=== PATIENT | female | born 1960 | race Caucasian/White ===

== ENCOUNTER 2019-10-10 11:50 | Emergency (ER) | payer MEDICARE ==
[~2019-10-10] VITALS: Ht 154.9 cm; Wt 85.7 kg
[2019-10-10 12:36] LABS: BASOPHILS % (AUTO) 0.4 % (0-1); EOSINOPHILS % (AUTO) 0.2 % (0-6); HEMATOCRIT 40.8 % (35.0-45.0); HEMOGLOBIN 13.8 g/dl (12.0-16.0); LYMPHOCYTES % (AUTO) 18.2 % (21-51); MEAN CORPUSCULAR HGB CONC 33.8 g/dL (33.0-36.5); MEAN CORPUSCULAR VOLUME 91.9 FL (78-98); MEAN PLATELET VOLUME 8.8 FL (7.4-10.4); MONOCYTES # (AUTO) 0.6 X10'3 (0-0.9); MONOCYTES % (AUTO) 5.3 % (2-12); NEUTROPHILS # (AUTO) 8.3 X10'3 (1.8-7.7); NEUTROPHILS % (AUTO) 75.9 % (42-75); PLATELET COUNT 230 X10'3 (140-440); RED BLOOD COUNT 4.44 X10'6 (4.20-5.60); RED CELL DISTRIBUTION WIDTH 12.8 % (11.5-14.5)
[2019-10-10 12:56] LABS: ALANINE AMINOTRANSFERASE 21 U/L (12-78); ALBUMIN 4.2 G/DL (3.4-5.0); ALBUMIN/GLOBULIN RATIO 1.4 (1.1-1.5); ALKALINE PHOSPHATASE 79 IU/L (46-116); ANION GAP 8 (8-16); ASPARTATE AMINO TRANSFERASE 17 U/L (10-37); BILIRUBIN,TOTAL 0.4 MG/DL (0.1-1.0); BLOOD UREA NITROGEN 10 MG/DL (7-18); BUN/CREATININE RATIO 12.3 (6.6-38.0); CHLORIDE 107 MMOL/L (99-107); CREATININE 0.81 MG/DL (0.40-0.90); GLUCOSE 97 MG/DL (70-104); LIPASE 107 U/L (73-393); SODIUM 141 MMOL/L (135-145); TOTAL CARBON DIOXIDE 26.5 MMOL/L (24-32); TOTAL PROTEIN 7.2 G/DL (6.4-8.2); eGFR 72 ML/MIN
[2019-10-10] MEDS ORDERED: normal saline 1000ML IV soln IVB ONE (13:05)
[2019-10-10] MEDS ORDERED: ondansetron/PF 4mg/2ml inj IV ONE (13:05)
[2019-10-10 13:54] LABS: CLARITY,URINE CLEAR (Clear); COLOR,URINE YELLOW (Yellow); GLUCOSE, URINE NEGATIVE (Neg); KETONES,URINE NEGATIVE (Neg); LEUKOCYTE ESTERASE ,URINE NEGATIVE (Neg); NITRITES, URINE NEGATIVE (Neg); OCCULT BLOOD,URINE SMALL (Neg); PROTEIN,URINE NEGATIVE (Neg); UA COLLECTION TYPE CLN CATCH MIDSTREAM; UROBILINOGEN,URINE 0.2 E.U/dL (0.2-1.0)
[2019-10-10] MEDS: morphine 4 MG/ML inj SYRINge IV PRN ×2 (13:56→14:32)
[2019-10-10 13:59] LABS: MUCUS STRANDS MODERATE /LPF (Neg); SQUAMOUS EPITHELIAL CELL,UR MODERATE /LPF (FEW)
[2019-10-10 14:00] LABS: BACTERIA,URINE FEW /HPF (Neg); WBC,URINE 0-4 /HPF (0-4)
[2019-10-10] MEDS ORDERED: CIPR-230 PO (14:33)
[2019-10-10] MEDS ORDERED: METR-159 PO (14:33)
[2019-10-10] MEDS ORDERED: DICY10CA88 PO (14:39)
[2019-10-10] MEDS ORDERED: dicyclomine 10 MG capsule PO ONE (14:40)
[2019-10-10 14:50] VITALS: BP 160/88
== END 2019-10-10 14:54 | disposition home or self-care (01) ==
LOC: ER 11:51
DX: K52.9 Noninfective gastroenteritis and colitis, unspecified (principal); R42 Dizziness and giddiness; K92.1 Melena; R10.33 Periumbilical pain; G89.29 Other chronic pain; Z98.890 Other specified postprocedural states; Z98.51 Tubal ligation status
CPT/HCPCS: 36415; 74176; 80053; 81001; 83690; 85025; 96361; 96374; 96375; 96376; 99284; J2270; J2405; J7030

== ENCOUNTER 2022-03-01 09:51 | Outpatient (CLI) | payer MEDICARE ==
[~2022-03-01 09:51] MED LIST: DICY10CA88 PO
== END 2022-03-01 23:59 | disposition home or self-care (01) ==
LOC: VAS 09:51
PROVIDERS: ATTEND Family Medicine
DX: I82.441 Acute embolism and thrombosis of right tibial vein (principal)
CPT/HCPCS: 93971

== ENCOUNTER 2022-06-30 13:31 | Outpatient (CLI) | payer MEDICARE | END 2022-06-30 23:59 | disposition home or self-care (01) | LOC: VAS 13:31 | PROVIDERS: ATTEND Family Medicine | DX: I82.441 Acute embolism and thrombosis of right tibial vein (principal) | CPT/HCPCS: 93971 ==

== ENCOUNTER 2022-08-15 09:36 | Emergency (ER) | payer MEDICARE, OTHER ==
[~2022-08-15] VITALS: Ht 167.6 cm; Wt 87.0 kg
[2022-08-15 10:06] LABS: BASOPHILS % (AUTO) 0.4 % (0-1); EOSINOPHILS # (AUTO) 0.1 X10'3 (0-0.9); EOSINOPHILS % (AUTO) 1.1 % (0-6); HEMATOCRIT 40.2 % (35.0-45.0); HEMOGLOBIN 13.4 g/dl (12.0-16.0); LYMPHOCYTES # (AUTO) 1.4 X10'3 (1.1-4.8); LYMPHOCYTES % (AUTO) 14.7 % (21-51); MEAN CORPUSCULAR HEMOGLOBIN 30.1 PG (27.0-31.0); MEAN CORPUSCULAR HGB CONC 33.2 g/dL (33.0-36.5); MEAN CORPUSCULAR VOLUME 90.5 FL (78-98); MEAN PLATELET VOLUME 8.5 FL (7.4-10.4); MONOCYTES # (AUTO) 0.8 X10'3 (0-0.9); MONOCYTES % (AUTO) 7.9 % (2-12); NEUTROPHILS # (AUTO) 7.4 X10'3 (1.8-7.7); NEUTROPHILS % (AUTO) 75.9 % (42-75); PLATELET COUNT 219 X10'3 (140-440); RED BLOOD COUNT 4.44 X10'6 (4.20-5.60); RED CELL DISTRIBUTION WIDTH 13.3 % (11.5-14.5); WHITE BLOOD COUNT 9.8 X10'3 (4.5-11.0)
[2022-08-15 10:20] LABS: ALANINE AMINOTRANSFERASE 29 U/L (12-78); ALBUMIN 3.8 G/DL (3.4-5.0); ALBUMIN/GLOBULIN RATIO 1.1 (1.1-1.5); ALKALINE PHOSPHATASE 72 IU/L (46-116); ANION GAP 7 (8-16); ASPARTATE AMINO TRANSFERASE 20 U/L (10-37); BILIRUBIN,TOTAL 0.3 MG/DL (0.1-1.0); BLOOD UREA NITROGEN 19 MG/DL (7-18); CALCIUM 8.7 MG/DL (8.5-10.1); CHLORIDE 105 MMOL/L (99-107); CREATININE 0.95 MG/DL (0.40-0.90); GLUCOSE 123 MG/DL (70-104); POTASSIUM 4.1 MMOL/L (3.5-5.1); SODIUM 139 MMOL/L (135-145); TOTAL CARBON DIOXIDE 27.5 MMOL/L (24-32); TOTAL PROTEIN 7.2 G/DL (6.4-8.2); eGFR 59 ML/MIN
[2022-08-15] MEDS ORDERED: normal saline 1000ML IV soln IVB ONE (10:35)
[2022-08-15] MEDS ORDERED: ketorolac trometh. 30mg/ml inj. IV ONE (10:35)
[2022-08-15] MEDS ORDERED: morphine 4 MG/ML inj SYRINge IV ONE ×2 (10:35→11:10)
[2022-08-15] MEDS ORDERED: aspirin 81mg tab.chew PO ONE (10:35)
[2022-08-15] MEDS ORDERED: LORazepam 2 mg/ml vial IV ONE (11:05)
[2022-08-15 11:08] LABS: LIPASE 116 U/L (73-393)
[2022-08-15] MEDS ORDERED: iohexol 350MG/ML 100ml bottle IV ONE (11:10)
[2022-08-15 11:12] LABS: D-DIMER 0.86 MG/L FEU (0-0.50)
[2022-08-15] MEDS ORDERED: ALBU6.7H14 INH (14:21)
[2022-08-15] MEDS ORDERED: AMOX-117 PO (14:21)
[2022-08-15] MEDS ORDERED: HYDR-3965 PO (14:21)
[2022-08-15 14:38] VITALS: BP 138/74
[2022-08-15] MEDS ORDERED: ondansetron 4mg rapidly disintigrating tab PO ONE (14:45)
== END 2022-08-15 14:54 | disposition home or self-care (01) ==
LOC: ER 09:37
DX: J90 Pleural effusion, not elsewhere classified (principal); R07.81 Pleurodynia; G89.29 Other chronic pain; M54.50 Low back pain, unspecified; Z98.51 Tubal ligation status
CPT/HCPCS: 36415; 71045; 71275; 74177; 80053; 83690; 83880; 84484; 85025; 85379; 93005; 96361; 96374; 96375; 99285; J1885; J2060; J2270; J3490; J7030; Q9967

== ENCOUNTER 2022-09-06 05:30 | Observation (INO) | payer OTHER ==
[2022-08-29 10:58] LABS: BASOPHILS # (AUTO) 0.1 X10'3 (0-0.2); BASOPHILS % (AUTO) 1.3 % (0-1); EOSINOPHILS # (AUTO) 0.4 X10'3 (0-0.9); EOSINOPHILS % (AUTO) 5.3 % (0-6); LYMPHOCYTES # (AUTO) 2.2 X10'3 (1.1-4.8); LYMPHOCYTES % (AUTO) 27.2 % (21-51); MEAN CORPUSCULAR HGB CONC 34.4 g/dL (33.0-36.5); MEAN PLATELET VOLUME 8.6 FL (7.4-10.4); MONOCYTES # (AUTO) 0.5 X10'3 (0-0.9); MONOCYTES % (AUTO) 6.2 % (2-12); NEUTROPHILS # (AUTO) 4.7 X10'3 (1.8-7.7); PRE OP HEMATOCRIT 38.8 % (35.0-45.0); PRE OP HEMOGLOBIN 13.4 g/dL (12.0-16.0); PRE OP PLATELET COUNT 274 X10'3 (140-440); RED BLOOD COUNT 4.32 X10'6 (4.20-5.60)
[2022-08-29 10:59] LABS: ALBUMIN 3.9 G/DL (3.4-5.0); ALBUMIN/GLOBULIN RATIO 1.1 (1.1-1.5); ALKALINE PHOSPHATASE 71 IU/L (46-116); BLOOD UREA NITROGEN 15 MG/DL (7-18); BUN/CREATININE RATIO 16.7 (6.6-38.0); CALCIUM 9.4 MG/DL (8.5-10.1); CHLORIDE 104 MMOL/L (99-107); PRE OP ALT 30 U/L (30-65); PRE OP ANION GAP 8 (8-16); PRE OP AST 25 U/L (10-37); PRE OP BILIRUB, TOTAL 0.3 MG/DL (0.0-1.0); PRE OP GLUCOSE 98 MG/DL (70-104); PRE OP SODIUM 141 MMOL/L (135-145); TOTAL CARBON DIOXIDE 28.8 MMOL/L (24-32); TOTAL PROTEIN 7.3 G/DL (6.4-8.2); eGFR 63 ML/MIN
[~2022-09-06] VITALS: Ht 154.9 cm; Wt 85.1 kg
[2022-09-06] VITALS (48 sets, daily range): BP systolic 123–179; BP diastolic 70–105
[~2022-09-06 05:30] MED LIST changes: +CALC1TAB PO; -DICY10CA88 PO; +MULT-1085 PO; +OMEP20CA16 PO; +ceFAZolin inj. 2,000 MG in dextrose 5%-water 100 ML IV ONE; +famotidine 20mg tablet PO ONE; +ringers solution, lacted 1,000 ML IV SCH
[2022-09-06] MEDS ORDERED: BUPIVAcaine 0.5% inj/PF 30 ML ONE (06:01)
[2022-09-06] MEDS ORDERED: sevoflurane 250ml liquid IH ONE (07:10)
[2022-09-06] MEDS ORDERED: acetaminophen 1000 MG/100ml vial IV ONE (07:10)
[2022-09-06] MEDS ORDERED: fentaNYL/PF 50MCG/1 ML 2ML syringe ONE (07:13)
[2022-09-06] MEDS ORDERED: midazolam 1 mg/ML 2ml injection ONE (07:14)
[2022-09-06] MEDS ORDERED: ROPIVAcaine 0.5% (5mg/ml) 30ml vial ONE (07:14)
[2022-09-06] MEDS ORDERED: dexamethasone sod phosphate 4mg/ml inj. ONE (07:14)
[2022-09-06] MEDS ORDERED: propofol inj 20 ML IV ONE (07:14)
[2022-09-06] MEDS ORDERED: LIDOcaine 2% (20mg/ml) 5ml vial ONE (07:14)
[2022-09-06] MEDS ORDERED: ondansetron/PF 4mg/2ml inj ONE (07:17)
[2022-09-06] MEDS ORDERED: ePHEDrine 50MG/ML INJ. ONE (08:06)
[2022-09-06] MEDS ORDERED: BUPIVAcaine 0.5% inj/PF 30 ml vial IJ ONE (08:14)
[2022-09-06] MEDS ORDERED: ringers solution, lacted 1,000 ML IV SCH (08:30)
[2022-09-06] MEDS ORDERED: ROPIVAcaine 0.2% (10 MG/5 ML) BOLUS INJECTION INTERSCALE PRN (08:30)
[2022-09-06] MEDS ORDERED: ondansetron/PF 4mg/2ml inj IV PRN ×2 (08:30→17:20)
[2022-09-06] MEDS ORDERED: fentaNYL/PF 50MCG/1 ML 2ML syringe IV PRN ×4 (08:30)
[2022-09-06] MEDS ORDERED: hydrALAZINE 20mg/ml inj. IV PRN (08:30)
[2022-09-06] MEDS ORDERED: enalaprilat dihydrate 2.5mg/2ml vial IV PRN (08:30)
[2022-09-06] MEDS ORDERED: meperidine/PF 25mg/ml syringe IV PRN ×2 (08:30)
--- NOTE | 2022-09-06 09:09 | NUR ---
Received from OR via [facility] IN STABLE CONDITION , accompanied by Anesthesiologist and MANAGER FASHION report given by MANAGER FASHION AND Anesthesiolgist. Addendum: 09/06/22 at 0920 by Petrona Bermudez RN Amended: Links added.
[2022-09-06] MEDS ORDERED: HYDROcodone/acetaminophen 10/325mg tab PO PRN ×3 (09:10→17:20)
[2022-09-06] MEDS ORDERED: ROPIVAcaine 0.2%/PF PUMP/bolus 545 ML INTERSCALE SCH (09:25)
--- NOTE | 2022-09-06 11:46 | NUR ---
PATIENT GIVEN AND EDUCATED ON THE USE OF THE IS Addendum: 09/06/22 at 1146 by Petrona Bermudez RN Amended: Links added.
[2022-09-06] MEDS ORDERED: proMETHazine 25mg rectal suppository RC STA (14:05)
[2022-09-06] MEDS ORDERED: HYDROmorphone inj. 0.5 MG/0.5 ML DISP.SYRIN IV PRN (17:20)
[2022-09-06] MEDS ORDERED: oxyCODONE IR 5mg (immed. release) tablet PO PRN ×2 (17:20)
[2022-09-06] MEDS ORDERED: bisacodyl 10mg suppository rectal RC PRN (17:20)
[2022-09-06] MEDS ORDERED: diphenhydrAMINE 25mg capsule PO PRN ×2 (17:20)
[2022-09-06] MEDS ORDERED: naloxone 0.4 mg/ml inj IV PRN (17:20)
[2022-09-06] MEDS ORDERED: acetaminophen 325mg tablet PO PRN (17:20)
[2022-09-06] MEDS ORDERED: magnesium hydroxide 30ml (MOM) UD suspension PO PRN (17:20)
[2022-09-06] MEDS ORDERED: HYDROmorphone 1 mg/ml syringe IV PRN (17:20)
--- NOTE | 2022-09-06 18:19 | NUR ---
PATIENT DISCHARGED FROM PACU IN STABLE CONDITION AFTER REPORT GIVEN TO RN TAKING OVER PATIENTS CARE. PATIENT TRANSFERRED VIA GURNEY TO ROOM 349A WITH CLIENT REPRESENTATIVE. Addendum: 09/06/22 at 1832 by Petrona Bermudez RN Amended: Links added.
[2022-09-06] MEDS: acetaminophen 325mg tablet PO SCH (19:21)
[2022-09-06] MEDS: LORazepam 1 MG tablet PO PRN (20:45)
[2022-09-06] MEDS ORDERED: sennosides 8.6mg tablet PO SCH (21:00)
[2022-09-06] MEDS: potassium cl 20mEq in 1/2 NS 1,000 ML IV SCH (21:48)
[2022-09-07] MEDS: ceFAZolin/D5W- 1GM premix 50 ML IV SCH ×2 (00:20→07:54)
[2022-09-07 02:00] VITALS: BP 148/72
[2022-09-07] MEDS: LORazepam 1 MG tablet PO PRN (02:10)
[2022-09-07] MEDS: acetaminophen 325mg tablet PO SCH ×2 (02:13→07:53)
--- NOTE | 2022-09-07 06:19 | NUR ---
Problems reprioritized. Patient report given, questions answered & plan of care reviewed with BO MIRAMONTES.
[2022-09-07 07:00] VITALS: BP 127/87
[2022-09-07] MEDS: potassium cl 20mEq in 1/2 NS 1,000 ML IV SCH ×2 (07:00→09:20)
--- NOTE | 2022-09-07 07:00 | NUR ---
LINKED MED NOTE: ancef and tylenol reassessment was not completed on noc shift.
[2022-09-07] MEDS ORDERED: pantoprazole 40mg Tablet.DR PO SCH (08:00)
[2022-09-07] MEDS ORDERED: multivitamins, therapeutics tablet PO SCH (08:00)
[2022-09-07] MEDS ORDERED: calcium carbonate/vitamin D3 tablet PO SCH (08:00)
[2022-09-07] MEDS ORDERED: aspirin 325mg tablet PO SCH (08:30)
[2022-09-07 11:00] VITALS: BP 148/78
[2022-09-07] MEDS ORDERED: ketorolac trometh. 30mg/ml inj. IV ONE (11:45)
--- NOTE | 2022-09-07 13:36 | NUR ---
Pt s/p arthroplasty rotator cuff repair, acromioplasty, and resection of distal clavicle of right shoulder, written protein education with RD contact information placed in patient's chart. Will remain available. Addendum: 09/07/22 at [address] Amended: Links added.
--- NOTE | 2022-09-07 13:55 | NUR ---
Patient stable and appropriate for discharge home. IV removed, all belongings taken from room. New RX given to patient pre-op. All discharge instructions and education given and reviewed with patient, all questions answered. Powder packs given. OnQ @8 intact. Shoulder wrap and sling on.
[2022-09-08] MEDS ORDERED: acetaminophen 325mg tablet PO PRN (17:20)
== END 2022-09-07 14:08 | disposition home health service (06) ==
LOC: PAS 05:30 → SUR 3N 17:21
PROVIDERS: ADMIT Orthopaedic Surgery; ATTEND Orthopaedic Surgery
DX: M75.111 Incomplete rotator cuff tear or rupture of right shoulder, not specified as traumatic (principal); M75.51 Bursitis of right shoulder; E66.9 Obesity, unspecified; I10 Essential (primary) hypertension; Z90.710 Acquired absence of both cervix and uterus; Z86.718 Personal history of other venous thrombosis and embolism; Z79.899 Other long term (current) drug therapy
CPT/HCPCS: 29826; 29827; 36415; 80053; 82948; 85025; 96365; 96366; 96375; 96376; 97110; 97116; 97161; C1713; G0378; J0131; J0360; J0690; J1100; J1885; J2250; J2405; J2704; J2795; J3010; J3480; J3490; J7060; J7120; S0020; A4565; A4615; A4618; A6449; A7000

== ENCOUNTER 2025-06-10 16:08 | Outpatient (CLI) | payer OTHER, MEDICARE ==
[~2025-06-10 16:08] MED LIST changes: -ceFAZolin inj. 2,000 MG in dextrose 5%-water 100 ML IV ONE; -famotidine 20mg tablet PO ONE; -ringers solution, lacted 1,000 ML IV SCH
[2025-06-10 16:36] LABS: MEAN PLATELET VOLUME 8.2 FL (7.4-10.4); RED CELL DISTRIBUTION WIDTH 13.1 % (11.5-14.5)
--- NOTE | 2025-06-10 21:41 | RADIOLOGY REPORT ---
CLINICAL INDICATION: PAIN IN RIGHT FOOT TECHNIQUE: 3 radiographic views of the right ankle were obtained. Comparison: DI FOOT, COMPLETE (3VW MIN) on DOS: 06/10/25 FINDINGS/IMPRESSION: There is small posterior calcaneal bony spur with fracture of the bony spur of unknown chronicity. Ot herwise, no evidence for acute traumatic fractures or dislocations. No significant ankle soft tissue edema.
--- NOTE | 2025-06-11 04:10 | RADIOLOGY REPORT ---
CLINICAL INDICATION: PAIN IN RIGHT FOOT TECHNIQUE: DI FOOT, COMPLETE (3VW MIN) Comparison: DI ANKLE, COMPLETE(3VW MIN) on DOS: 06/10/25 FINDINGS/IMPRESSION: : There is no evidence of acute fracture or dislocation. Hardware within the 5th metatarsal head without evidence of complication. Minimal retrocalcaneal enthesopathy. Soft tissues are unremarkable.
== END 2025-06-10 23:59 | disposition home or self-care (01) ==
LOC: RAD 16:08
PROVIDERS: ATTEND Family Medicine
DX: M77.31 Calcaneal spur, right foot (principal); M79.671 Pain in right foot
CPT/HCPCS: 36415; 73610; 73630; 84550; 85025; 85651; 86140